=== PATIENT | male | born 1955 | race Caucasian/White ===

== ENCOUNTER 2017-03-30 13:03 | Inpatient (IN) | payer OTHER ==
[~2017-03-30] VITALS: Ht 167.6 cm; Wt 65.0 kg
--- NOTE | 2017-03-30 15:53 | NUR ---
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
--- NOTE | 2017-03-30 16:20 | NUR ---
DR. DOMINGUEZ PERFORMED MSE
--- NOTE | 2017-03-30 16:26 | NUR ---
PT HAS NOTED ORAL TRAUMA TO LEFT SIDE OF TONGUE
[2017-03-30 16:39] LABS: BASOPHIL % 0.1 % (0-2); PLATELET COUNT 200 x10^3mcL (130-400)
[2017-03-30 16:44] LABS: RED CELL DISTRIBUTION WIDTH 15.3 % (11.5-14.5)
[2017-03-30 16:46] LABS: CALCIUM 8.5 mg/dL (8.5-10.1); CARBON DIOXIDE 25.9 mmol/L (21-32); CHLORIDE SERUM 99 mmol/L (98-107); CREATININE SERUM 0.7 mg/dL (0.7-1.3); GFR1 > 60 mL/min; GLUCOSE SERUM 193 mg/dL (74-106); POTASSIUM SERUM 3.3 mmol/L (3.5-5.1); SODIUM SERUM 134 mmol/L (136-145)
[2017-03-30 16:51] LABS: ALBUMIN 3.5 g/dL (3.4-5.0); ALKALINE PHOSPHATASE 95 U/L (46-116); ALT/SGPT 24 U/L (16-63); AST/SGOT 29 U/L (15-37); BILIRUBIN TOTAL 1.7 mg/dL (0.20-1.00); TOTAL PROTEIN, SERUM 7.6 g/dL (6.4-8.2)
[2017-03-30 16:52] LABS: microscopic required? NO
--- NOTE | 2017-03-30 16:52 | NUR ---
PT TO CT VIA ERIK
[2017-03-30 16:57] LABS: UA SPECIFIC GRAVITY 1.025 (1.005-1.035); urine erythrocyte NEGATIVE (NEGATIVE)
--- NOTE | 2017-03-30 17:07 | NUR ---
PT RETURNED FROM CT, NO ACUTE DISTRESS
[2017-03-30] MEDS ORDERED: TRAZODONE50 M1 PO (18:10)
[2017-03-30] MEDS ORDERED: AMARYL4 MG PO (18:11)
[2017-03-30] MEDS ORDERED: ENALAPRIL MALEA10 MG PO (18:11)
[2017-03-30] MEDS ORDERED: LIPI20 PO (18:11)
[2017-03-30] MEDS ORDERED: NOR5 PO (18:12)
[2017-03-30] MEDS ORDERED: ZOF4 PO (18:12)
[2017-03-30] MEDS ORDERED: BETIMOL5 M1 OU (18:12)
[2017-03-30] MEDS ORDERED: CLONIDINE HCL0.2 MG PO (18:13)
[2017-03-30] MEDS ORDERED: METFORMIN HCL1000 MG PO (18:13)
[2017-03-30] MEDS ORDERED: ASPIR 8181 MG PO (18:13)
--- NOTE | 2017-03-30 18:49 | NUR ---
ENGINEERING SUPERVISOR LOGAN TO TEXT FOR ADMIT ORDERS
--- NOTE | 2017-03-30 18:52 | NUR ---
TRIED TO CALL REPORTJOYCELYN TO CALL BACK
--- NOTE | 2017-03-30 18:58 | NUR ---
REPORT TO SURU RN TO ASSUME CARE; AWAITING ADMIT ORDERS
--- NOTE | 2017-03-30 19:11 | NUR ---
REPORT TO GERALDO GLOVER TO ASSUME CARE; ADMIT ORDERS IN, WILL TRANSFER AT CHANGE OF SHIFT
--- NOTE | 2017-03-30 19:20 | NUR ---
RECEIVED PT FROM ED VIA LE, CAME IN DUE TO DIZZINESS. AAOX2 (PERSON, PLACE AND BIRHDATE). ABLE TO FOLLOW SIMPLE COMMANDS. SPEECH IS CLEAR. C/O BLURRY VISION SINCE YESTERDAY. W/ LEFT SIDED WEAKNESS, LEFT EYE DROOP, LEFT FACIAL DROOP. NO SOB NOTED. LUNG SOUNDS CTA. DENIES CHEST PAIN/PRESSURE, SINUS TACHYCARDIA. URINE INCONTINENT. W/ DARK DISCOLORATION ON THE BLE. W/ BRACE ON THE RLE (PT'S OWN FOR HIS POLIO). RECEIVED PT FROM ED W/ MAGNESIUM SULFATE AND POTASSIUM CHLORIDE ONGOING. SIDE RAILS UPX2. CALL LIGHT ON REACH. HOB ELEVATED AT 30 DEG. BED ALARM ON. ENDORSED
--- NOTE | 2017-03-30 19:21 | NUR ---
RECEIVED PT FROM RESOURCE NURSE. PT A/O X2, ABLE TO FOLLOW COMMANDS. PT REPORTS BLURRY VISION FOR 2 DAYS. TELE #30, NSR, DENIES CHEST PAIN. PULSES PALPABLE, NO EDEMA NOTED. LUNG SOUNDS CLEAR, BREATHING FREELY ON RA, PT DENIES SOB. ABD IS SOFT AND NONDISTENDED, REPORTS LAST BM WAS YESTERDAY-WATERY. PT VOIDS USING A URINAL, BUT IS ALSO INCONTINENT OF URINE. 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 PT HAS HIS OWN BRACE TO THE LEFT LEG, PT REPORTS HE HAS POLIO. PT STATES HE USES CRUTCHES TO WALK AT HOME. DARK DISCOLORATION NOTED TO BLE. 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 PT DENIES PAIN AT THIS TIME. MAG SULFATE TO RFA, INFUSING @ 25 ML/HR; POTASSIUM TO RFA, INFUSING @ 30 ML/HR. BED IN LOWEST SETTING, SIDE RAILS UP X2, CALL LIGHT WITHIN REACH. WILL CONTINUE TO MONITOR.
[2017-03-30 19:45] VITALS: BP 163/89
[2017-03-30 19:52] VITALS: Ht 167.6 cm; Wt 65.0 kg
[2017-03-30 20:34] LABS: T3 TOTAL 0.67 ng/mL
[2017-03-30 20:35] LABS: CHOLESTEROL/HDL RATIO 1.7
[2017-03-30 20:40] LABS: FREE T4 1.26 ng/dL (0.76-1.46); T4(THYROXINE) 8.7 ug/dL (4.7-13.3)
[2017-03-30 21:01] LABS: AMPHETAMINE QUAL UR NONE DETECTED (NEG <=1000)
[2017-03-31 03:59] LABS: CALCIUM 8.1 mg/dL (8.5-10.1); CARBON DIOXIDE 23.3 mmol/L (21-32); CHLORIDE SERUM 104 mmol/L (98-107); CREATININE SERUM 0.7 mg/dL (0.7-1.3); GFR1 > 60 mL/min; GLUCOSE SERUM 159 mg/dL (74-106); MAGNESIUM 1.6 mg/dL (1.8-2.4); POTASSIUM SERUM 3.3 mmol/L (3.5-5.1); SODIUM SERUM 142 mmol/L (136-145)
--- NOTE | 2017-03-31 04:30 | NUR ---
PT'S ALCOHOL BLOOD CAME BACK NEGATIVE. PER DR. RIVERA, PT DOES NOT QUALIFY FOR ALCOHOL PROTOCOL.
[2017-03-31 05:37] VITALS: BP 134/50
[2017-03-31 05:43] LABS: CARBON DIOXIDE 25.3 mmol/L (21-32); CHLORIDE SERUM 102 mmol/L (98-107); CREATININE SERUM 0.6 mg/dL (0.7-1.3); GFR1 > 60 mL/min; GLUCOSE SERUM 154 mg/dL (74-106); MAGNESIUM 1.3 mg/dL (1.8-2.4); SODIUM SERUM 138 mmol/L (136-145)
[2017-03-31 05:47] LABS: POTASSIUM SERUM 2.7 mmol/L (3.5-5.1)
--- NOTE | 2017-03-31 06:15 | NUR ---
POTASSIUM CHLORIDE INFUSING WELL TO RFA. NO SIGNS OF RESP DISTRESS OBSERVED. PT DENIES PAIN OR SOB AT THIS TIME. BED IN LOWEST SETTING, SIDE RAILS UP X2, CALL LIGHT PLACED WITHIN REACH. WILL ENDORSE CARE TO AM NURSE.
--- NOTE | 2017-03-31 07:30 | NUR ---
RECEIVED ENDORSEMENT FROM [facility] SHIFT NURSE TO HANG MAG RIDER FOR AM SHIFT; WILL CARRY OUT SOON POSSIBLE.
--- NOTE | 2017-03-31 07:51 | NUR ---
RECEIVED PT IN BED, S/P U/S PROCEDURE. A/A/O X 3. STILL C/O BLURRY VISION. ON TELE # 30, SHOWING NSR WITH HR 88. SWATHI RADIAL AND PEDAL PULSES PRESENT, NO EDEMA. BUL AND BLL CLEAR, ON R/A, SPO2 96%. ABD ROUND, SOFT, NON-TENDER. NORMOACTIVE BOWEL SOUNDS X 4 QUADS. LAST BM 04/09/17. USES URINAL, WITH EPISODES OF INCONTINENCE. NO DYSURIA. L SIDED WEAKNESS. BLE HAS DARK DISCOLORATION, BUT SKIN IS OTHERWISE INTACT. DENIES PAIN AT THIS TIME. IV SITE @ [facility], RUNNING NS @ 100 ML/HR. BED IN LOW POSITION, SIDE RAILS UP X 2, CALL LIGHT WITHIN REACH. WILL CONTINUE TO MONITOR.
--- NOTE | 2017-03-31 08:52 | NUR ---
DR LACY, RESIDENTS, CHARGE NURSE, AND ASSIGNED NURSE CAME IN TO SEE PT; MD DISCUSSED CARE PLAN FOR PT; ALL QUESTIONS ANSWERED; PT VERBALIZED UNDERSTANDING.
[2017-03-31 09:44] VITALS: BP 132/36
--- NOTE | 2017-03-31 11:00 | NUR ---
PT IN BED, SISTER AND MOTHER BY BEDSIDE; PT GIVEN DIABETES TEACHING; ALL QUESTIONS ANSWERED; PT VERBALIZED UNDERSTANDING. NO RESPIRATORY DISTRESS, PAIN, OR DISCOMFORT NOTED. WILL CONTINUE TO MONITOR.
--- NOTE | 2017-03-31 14:04 | NUR ---
GIVEN 1400 DOSE OF LORAZEPAM 1 MG. PT REPORTS SEEING "CARTOONS" STILL. STATES THAT "THEY" ARE NOT SAYING ANYTHING TO HIM, JUST "FLOATING AROUND" THE ROOM. ASSURED PT THAT HE IS SAFE, AND TO USE THE CALL LIGHT FOR HELP. WILL CONTINUE TO MONITOR.
[2017-03-31 14:27] VITALS: BP 117/83
[2017-03-31 17:19] VITALS: BP 112/70
--- NOTE | 2017-03-31 17:20 | NUR ---
NOTIFIED DR VARGAS THAT PT PULLED OUT HIS IV AND HAS INCREASING CONFUSION 2/2 ETOH WITHDRAWAL. PT HAS ROUTINE LORAZEPAM, BUT NO PRN LORAZEPAM. ALSO TOLD MD THAT FAMILY SAID IN PASSING THAT THEY WILL NOT BE ABLE TO CARE FOR THE PT IN HIS CURRENT STATE, AND WILL PREFER TO HAVE HIM STAY IN A REHAB / CORRECTION FOR A WHILE. MD TALKED TO PT RE: COMPLYING WITH RECOMMENDATIONS TO KEEP PT SAFE. NEW 20G 1.25" IV INSERTED TO LFA. GOOD BLOOD RETURN, GOOD FLUSHING. NO BLEEDING, PAIN, OR DISCOMFORT. WILL CONTINUE TO MONITOR.
--- NOTE | 2017-03-31 17:44 | NUR ---
PT WAS GIVEN LORAZEPAM 1 MG PO D/T INCREASED AGITATION. PT COMPLIED, TOOK MEDICATION WITHOUT DIFFICULTY. WILL CONTINUE TO MONITOR. PT JUST FINISHED EATING HIS DINNER IN BED.
--- NOTE | 2017-03-31 17:50 | NUR ---
PT ATTEMPTED TO GET OOB UNASSISTED SEVERAL TIMES. PT STATES THAT HE IS SEEING "GIANT ANTS" ON THE WALL. DR VARGAS NOTIFIED OF PT'S BEHAVIOR. GAVE ORDER FOR ATIVAN 1 MG IVP QHOURLY PRN.
--- NOTE | 2017-03-31 18:56 | NUR ---
PT IN BED, ASLEEP. SITTER BY BEDSIDE. NO RESPIRATORY DISTRESS NOTED. WILL ENDORSE TO NOC SHIFT.
--- NOTE | 2017-03-31 20:07 | NUR ---
PT CURRENTLY RESTING IN BED, NO ACUTE DISTRESS. A/O X2. TELE #30 SHOWING SINUS RHYTHM, DENIES CHEST PAIN. PULSES PALPABLE IN ALL EXTREMITIES, NO EDEMA NOTED. LUNG SOUNDS CTA BILATERALLY, DENIES SOB. BOWEL SOUNDS ACTIVE, LAST BM 03/30/17. URINARY INCONTINENCE NOTED. LEFT SIDED WEAKNESS NOTED, BRACE IN PLACE. BLE DARK DISCOLORATION NOTED. DENIES PAIN AT THIS TIME. IV PATENT AND INTACT. BED IN LOWEST POSITION, SIDE RAILS UP X2, SCDS IN PLACE, CALL LIGHT WITHIN REACH. WILL CONTINUE TO MONITOR.
[2017-03-31 21:09] VITALS: BP 139/71
--- NOTE | 2017-04-01 00:54 | NUR ---
PT BECOMING AGITATED, MEDICATED PER EMAR. WILL CONTINUE TO MONITOR.
--- NOTE | 2017-04-01 02:11 | NUR ---
PT DISPLAYING COMBATIVE BEHAVIOR, SOFT WRIST RESTRAINTS APPLIED. WILL CONTINUE TO MONITOR.
--- NOTE | 2017-04-01 05:59 | NUR ---
PT SLEPT PERIODICALLY THROUHGOUT NIGHT, NO ACUTE DISTRESS. ALL NEEDS MET AND ATTENDED TO. NO SIGNIFICANT CHANGES. IV PATENT AND INTACT. SOFT WRIST RESTRAINTS IN PLACE, EXTREMITIES WNL. BED IN LOWEST POSITION, SIDE RAILS UP X2, SCDS IN PLACE, CALL LIGHT WITHIN REACH. WILL ENDORSE CARE TO ONCOMING NURSE.
[2017-04-01 06:36] VITALS: BP 144/76
[2017-04-01 07:01] LABS: BASOPHIL % 0.4 % (0-2); PLATELET COUNT 165 x10^3mcL (130-400); RED CELL DISTRIBUTION WIDTH 15.1 % (11.5-14.5)
[2017-04-01 07:07] LABS: CALCIUM 8.4 mg/dL (8.5-10.1); CARBON DIOXIDE 24.7 mmol/L (21-32); CHLORIDE SERUM 109 mmol/L (98-107); CREATININE SERUM 0.7 mg/dL (0.7-1.3); GFR1 > 60 mL/min; GLUCOSE SERUM 183 mg/dL (74-106); MAGNESIUM 1.3 mg/dL (1.8-2.4); PHOSPHOROUS 2.4 mg/dL (2.5-4.9); POTASSIUM SERUM 3.2 mmol/L (3.5-5.1); SODIUM SERUM 142 mmol/L (136-145)
--- NOTE | 2017-04-01 07:40 | NUR ---
PT IN BED, SITTER BY BEDSIDE. A/A/O X 2, CALM AND COOPERATIVE AT THIS TIME, BUT REPORT FROM NOC STATES THAT THE PT TRIED HITTING STAFF, SO PT ON SWATHI WRIST SOFT RESTRAINTS AT THIS TIME. COLOR, SENSATION, MOVEMENT GOOD. SWATHI PEDAL PULSES PRESENT, NO EDEMA. CAP REFILL < 3 SECS. BUL / BLL CLEAR, CHEST RISING EQUALLY, ON R/A, SPO2 98%. ABD SOFT, ROUND, NON-TENDER, NORMOACTIVE BOWEL SOUNDS X 4 QUADS. LAST BM 03/30/17. VOIDS FREELY, WITH EPISODES OF INCONTINENCE, NO DYSURIA. HAS LEFT-SIDED WEAKNESS, USES BRACE FOR LLE. BLE HAS DARK DISCOLORATIONS. DENIES PAIN AT THIS TIME. IV SITE AT [facility], RUNNING NS AT 100 ML/HR. PT ON ETOH PROTOCOL, NO VISUAL HALLUCINATIONS AT THIS TIME. SIDE RAILS UP X 2, BED IN LOW POSITION, CALL LIGHT WITHIN REACH. WILL CONTINUE TO MONITOR.
--- NOTE | 2017-04-01 08:58 | NUR ---
DR REGALADO, RESIDENTS, CHARGE NURSE, AND ASSIGNED NURSE CAME IN TO SEE PT; MD DISCUSSED CARE PLAN WITH PT; ALL QUESTIONS ANSWERED; PT VERBALIZED UNDERSTANDING.
--- NOTE | 2017-04-01 11:00 | NUR ---
PT SITTING ON THE CHAIR, FAMILY (SISTER, MOTHER, [id number]) BY BEDSIDE. NO RESPIRATORY DISTRESS, PAIN, OR DISCOMFORT NOTED. PT MAINTAINING GOOD BALANCE WHILE ON CHAIR. SOFT RESTRAINTS ARE OFF FOR CIRCULATION. SITTER BY BEDSIDE WELL.
--- NOTE | 2017-04-01 12:35 | NUR ---
PT WAS TAKEN TO DO CT SCAN OF HEAD WITHOUT CONTRAST, VIA W/C.
[2017-04-01 13:30] VITALS: BP 117/66
--- NOTE | 2017-04-01 14:15 | NUR ---
PT IN BED, RESTING COMFORTABLY. PT IS CALM, COOPERATIVE. REMINDED PT TO USE CALL LIGHT TO CALL FOR HELP IF HE NEEDS ANYTHING. PT VERBALIZED UNDERSTANDING. WILL CONTINUE TO MONITOR.
--- NOTE | 2017-04-01 15:18 | NUR ---
PT C/O GENERALIZED BODY PAIN, 03/02. GIVEN MORPHINE 2MG IVP. PT WAS ALSO CLEANED, MADE COMFORTABLE. WILL CONTINUE TO MONITOR.
--- NOTE | 2017-04-01 16:11 | NUR ---
PHYSICAL THERAPY DAILY NOTES CO-SIGN All documentation done by the Ship'S Carpenter for 04/01/17 has been reviewed. I agree with the documentation. Reviewed/Co-Signed by: Niraj Romero PT Documentation Done by:JOSE ADAN CABLE TESTER POC REVIEWED W/ CABLE TESTER; PSYCHOSOCIAL ISSUE; PROGRESS [place]; FAMILY IN ROOM & SUPPORTIVE; NURSE SITTER IN ROOM; PROGRESSING W/ GAIT ENDU- HARME[place]; WILL BRING ORTHOTIC SHOE; KAFO IN PLACE.
[2017-04-01 16:40] VITALS: BP 157/42
--- NOTE | 2017-04-01 18:56 | NUR ---
PT IN BED, RESTING COMFORTABLY. PT CALM, COOPERATIVE. NO RESPIRATORY DISTRESS, PAIN, OR DISCOMFORT NOTED. WILL ENDORSE TO NOC SHIFT.
--- NOTE | 2017-04-01 19:41 | NUR ---
SHIFT REASSESSMENT DONE.PATIENT ALERT AND ORIENTEDX 2.NEEDS ANTICIPATED,BLURRY VISION.ETOH PROTOCOL.BREATHING EASY.L SIDE WEAKNESS.BRACE TO LLE,PHYSICAL THERAPY.FALL PRECAUTION.NS AT 100 CC/ HOUR LFA.TELE 30 SR.BLE DISCOLORATION NOTED.URINAL BUT GETS INCONTINENT.GIRLFRIEND AT BEDSIDE,SUPPORTIVE OF CARE.CALL LITE IN REACH.
[2017-04-01 21:53] VITALS: BP 158/50
--- NOTE | 2017-04-01 22:28 | NUR ---
PATIENT PM MEDS GIVEN,SWALLOWS WELL.PATIENT USING URINAL BUT GETS INCONTINENT.UA NEEDED FOR LAB.DIRECTOR OF RETAIL MERCHANDISING MADE AWARE.
--- NOTE | 2017-04-02 00:06 | NUR ---
PATIENT REMAINS CONFUSED,ETOH PROTOCOL,DRIBBLES IN URINAL AND END UP LINEN WET.ASSISTED WITH ADLS.REMINDED WE NEED UA FOR OSMOLALITY AND LYTES.
--- NOTE | 2017-04-02 01:24 | NUR ---
PATIENT SLEEPING COMFORTABLY,NEED TO BE STRAIGHTENED UP.WILL DO WHEN FULLY AWAKE,BREATHING EASY.
--- NOTE | 2017-04-02 05:54 | NUR ---
GIVEN AM CARE.PATIENT GETS INCONTINENT,UA COLLECTED FOR LYTES AND OSMO URINE.I AND O MEASURED.PATIENT REMAINS CONFUSED.NEEDED HELP WITH ADLS.ETOH PROTOCOL,ATIVAN PO Q 8 HOURS.WILL ENDORSE TO NEXT SHIFT.
[2017-04-02 06:30] VITALS: BP 156/88
[2017-04-02 07:16] LABS: BASOPHIL % 0.4 % (0-2); PLATELET COUNT 175 x10^3mcL (130-400); RED CELL DISTRIBUTION WIDTH 15.3 % (11.5-14.5)
--- NOTE | 2017-04-02 07:20 | NUR ---
RECEIVED PT IN BED, RESTING COMFORTABLY. A/A/O X 2, CALM, COOPERATIVE. PT STATES THAT HE SAW "CARTOONS" YESTERDAY, BUT HAS NOT HAD ANY EPISODES UP UNTIL THIS TIME. 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 SWATHI EYES BLURRY FOR YEARS, WITH L EYE WORSE. ON TELE # 30, SHOWING SR WITH HR 90. SWATHI RADIAL AND PEDAL PULSES PRESENT, NO EDEMA, CAP REFILL < [address] BUL / BLL CLEAR, CHEST RISING EVENLY, ON R/A, SPO2 98%. ABD ROUND, SOFT, NON-TENDER, NORMOACTIVE BOWEL SOUNDS X 4 QUADS. LAST BM 03/31/17. EPISODES OF URINARY INCONTINENCE, NO DYSURIA. LEFT-SIDED WEAKNESS, WEARS BRACE TO LLE. BLE DISCOLORATION, SKIN INTACT OTHERWISE. DENIES PAIN AT THIS TIME. IV SITE TO [facility], RUNNING NS 100 ML/HR. PADDED SIDE RAILS UP X 2, BED IN LOW POSITION, CALL LIGHT WITHIN REACH. WILL CONTINUE TO MONITOR.
[2017-04-02 07:33] LABS: CALCIUM 8.8 mg/dL (8.5-10.1); CARBON DIOXIDE 22.1 mmol/L (21-32); CHLORIDE SERUM 110 mmol/L (98-107); CREATININE SERUM 0.7 mg/dL (0.7-1.3); GFR1 > 60 mL/min; GLUCOSE SERUM 215 mg/dL (74-106); MAGNESIUM 1.6 mg/dL (1.8-2.4); PHOSPHOROUS 2.6 mg/dL (2.5-4.9); POTASSIUM SERUM 4.3 mmol/L (3.5-5.1); SODIUM SERUM 143 mmol/L (136-145)
--- NOTE | 2017-04-02 09:00 | NUR ---
DR MULLEN, RESIDENTS, CHARGE NURSE, AND ASSIGNED NURSE CAME IN TO SEE PT; DISCUSSED CARE PLAN FOR PT, INCLUDING PHYSICAL THERAPY AND D/C HOME; ALL QUESTIONS ANSWERED, PT VERBALIZED UNDERSTANDING.
[2017-04-02 14:07] VITALS: BP 151/85
--- NOTE | 2017-04-02 15:24 | NUR ---
PHYSICAL THERAPY DAILY NOTES CO-SIGN All documentation done by the Billiard Table Mechanic for 04/02/17 has been reviewed. I agree with the documentation. Reviewed/Co-Signed by: Deena Dockery PT Documentation Done by: salo Machado TOP FRAME FITTER Pt cecilia good gains towards rehab goals, able to follow cues.
--- NOTE | 2017-04-02 16:40 | NUR ---
GAVE REPORT TO INTAKE NURSE, YAIR, AT [facility] . ADVISED YAIR THAT P/U TIME WILL BE 1700, BY GRACE.
--- NOTE | 2017-04-02 17:15 | NUR ---
2 TRANSPORT PERSONNEL FROM [facility] CAME IN TO HOSPITALITY MANAGER PT; GIVEN REPORT, THEN PT WAS TRANSFERRED FROM BED TO [facility]. A/A/O X 2, NO RESPIRATORY DISTRESS, PAIN, OR DISCOMFORT NOTED.
== END 2017-04-02 17:54 | DRG 896 ==
LOC: ED 13:03 → DU 18:18
PROVIDERS: Emergency Medicine; ADMIT Family Medicine
DX: F10.239 Alcohol dependence with withdrawal, unspecified (principal); G92 Toxic encephalopathy; E87.6 Hypokalemia; E83.42 Hypomagnesemia; E83.51 Hypocalcemia; E86.0 Dehydration; E11.3292 Type 2 diabetes mellitus with mild nonproliferative diabetic retinopathy without macular edema, left eye; H40.2231 Chronic angle-closure glaucoma, bilateral, mild stage; I10 Essential (primary) hypertension; T51.0X1A Toxic effect of ethanol, accidental (unintentional), initial encounter; D64.9 Anemia, unspecified; E78.5 Hyperlipidemia, unspecified; G47.00 Insomnia, unspecified; R29.6 Repeated falls; Z86.12 Personal history of poliomyelitis; Z79.82 Long term (current) use of aspirin; Z68.23 Body mass index [BMI] 23.0-23.9, adult; Z87.891 Personal history of nicotine dependence; Z79.84 Long term (current) use of oral hypoglycemic drugs; Z91.19 Patient's noncompliance with other medical treatment and regimen
CPT/HCPCS: 82962; 83880; 84439; 97110-GP; 97116-GP; 97530-GP; G0480; J2060; J2270; J3475; J3480; J3490; J7030; Q0092

== ENCOUNTER → 2017-11-11 | Outpatient (CLI) | payer OTHER ==
[~2017-11-11] MED LIST: AMARYL4 MG PO; ASPIR 8181 MG PO; BETIMOL5 M1 OU; CLONIDINE HCL0.2 MG PO; ENALAPRIL MALEA10 MG PO; LIPI20 PO; METFORMIN HCL1000 MG PO; NOR5 PO; TRAZODONE50 M1 PO; ZOF4 PO
== END | disposition home or self-care (01) ==
LOC: RD 12:07
DX: R22.41 Localized swelling, mass and lump, right lower limb (principal)